=== PATIENT | male | born 1995 | race Caucasian/White ===

== ENCOUNTER 2016-11-12 21:43 | Emergency (ER) | payer BC, OTHER ==
[~2016-11-12] VITALS: Ht 172.7 cm; Wt 76.3 kg
[2016-11-12 21:50] VITALS: TEMP 36.8; Ht 172.7 cm; Wt 76.3 kg
[2016-11-12] MEDS ORDERED: GLUC10007 PO (22:07)
[2016-11-12] MEDS ORDERED: MULT-600 PO (22:07)
[2016-11-12] MEDS ORDERED: XYLOCAINE 1%/SOD BICARB 20 ML VIAL INFIL ONE (22:15)
--- NOTE | 2016-11-12 22:33 | DIAGNOSTIC IMAGING REPORT ---
CT HEAD WITHOUT CONTRAST (CT) CLINICAL HISTORY: Head pain status post trauma COMPARISON STUDY: No previous studies for comparison. TECHNIQUE: Axial CT of the brain is performed from the vertex to the skull base. IV contrast was not administered for this examination. CT DOSE: 537.48 mGy.cm FINDINGS: No intra or extra-axial mass lesions are visualized. There is no CT evidence of acute cortical infarction. There is no evidence of midline shift. There is no acute hemorrhage. No calvarial fractures are visualized. There is no evidence of pathologic ventricular dilatation. There is no evidence of acute sinusitis IMPRESSION: Normal noncontrast head CT. Electronically signed by: Niles Luis M.D. 11/12/2016 10:32 PM Dictated Date/Time: 11/12/2016 10:30 PM
--- NOTE | 2016-11-12 22:34 | DIAGNOSTIC IMAGING REPORT ---
RIGHT HAND MIN 3 VIEWS ROUTINE CLINICAL HISTORY: Right hand pain status post trauma. Lacerations. COMPARISON: None. DISCUSSION: No fractures or dislocations are visualized. There are no radiopaque foreign bodies. IMPRESSION: 1. No fractures or dislocations identified 2. No radiopaque foreign bodies are visualized. Electronically signed by: Niles Luis M.D. 11/12/2016 10:33 PM Dictated Date/Time: 11/12/2016 10:32 PM
[2016-11-12] MEDS ORDERED: CEPHALEXIN MONOHYDRATE 250 MG CAP PO ONE (23:00)
[2016-11-12 23:03] VITALS: BP 148/96; PULSE 70; O2SAT 99
[2016-11-12] MEDS ORDERED: CEPH500C PO (23:03)
--- NOTE | 2016-11-12 23:04 | EMERGENCY ROOM VISIT NOTE ---
History Report prepared by Emmanuel: Maryan Colunga Under the Supervision of: Dr. Prabhakar Ramos M.D. First contact with patient: 21:57 Chief Complaint: HEAD INJURY (MINOR) Stated Complaint: HIT IN HEAD, DIZZY, LACERATION TO RT HAND- History of Present Illness The patient is a 21 year old male who presents to the Emergency Room with complaints of a persistent headache which started earlier today. He was at work , putting up a projector screen when he fell backwards through the display window. The projector screen fell onto his head and his right hand was cut from the glass. He did not lose consciousness. He reports having some tunnel vision and almost falling asleep after the fall. He is still experiencing a headache in his left forehead area. He denies any neck pain. The patient is right handed. His tetanus is up to date. Source of History: patient Onset: earlier today Position: head Quality: ache Timing: other (persistent) Associated Symptoms: No LOC, No neck pain Note: Pt reports having tunnel vision after the injury. Review of Systems See HPI for pertinent positives & negatives. A total of 6 systems reviewed and were otherwise negative. Family History Pt reports no pertinent family history. Social History Smoking Status: Never Smoker Marital Status: single Occupation Status: employed Current/Historical Medications Scheduled Cephalexin Monohydrate (Keflex), 500 MG PO TID Glucosamine Sulfate (Glucosamine), 1,000 MG PO DAILY Multiple Vitamins W/ Minerals (Mens Multi Vitamin & Mine), 1 TAB PO DAILY Allergies Coded Allergies: No Known Allergies (Unverified Allergy, Unknown, 02/12/03) Physical Exam Vital Signs Date Time Temp Pulse Resp B/P Pulse Ox O2 Delivery O2 Flow Rate FiO2 11/12/16 23:03 70 18 148/96 99 Room Air 11/12/16 21:50 36.8 66 20 166/103 99 Room Air Physical Exam GENERAL: Patient is well appearing and in minimal distress. HEENT: Mucous membranes moist, no nasal congestion, no scleral icterus. Moderate hematoma over left pentecostalism of head tender to palpation. NECK: No stridor, no adenopathy, no meningismus, trachea is midline. LUNGS: No dyspnea. Clear to auscultation and equal bilaterally. No wheeze, no rhonchi. HEART: Regular rate and rhythm. No murmurs, rubs, gallops appreciated. EXTREMITIES: Normal motion all extremities, no cyanosis, no edema. On right hand , there is a 1 cm gash over the dorsal aspect of the thenar eminence and a 1.5 cm length flap in the mid thumb and a 0.5 cm laceration. NEUROLOGIC: Alert and oriented, no acute motor or sensory deficits, no focal weakness, cranial nerves grossly intact. GCS 15. SKIN: No rash, no jaundice, no diaphoresis. Medical Decision & Procedures ER Provider Diagnostic Interpretation: X ray results are stated below per my interpretation and the radiologist's interpretation. Radiology results and stated below per my review and radiologist interpretation: RIGHT HAND MIN 3 VIEWS ROUTINE CLINICAL HISTORY: Right hand pain status post trauma. Lacerations. COMPARISON: None. DISCUSSION: No fractures or dislocations are visualized. There are no radiopaque foreign bodies. IMPRESSION: 1. No fractures or dislocations identified 2. No radiopaque foreign bodies are visualized. Electronically signed by: Niles Luis M.D. 11/12/2016 10:33 PM Dictated Date/Time: 11/12/2016 10:[address] HEAD WITHOUT CONTRAST (CT) CLINICAL HISTORY: Head pain status post trauma COMPARISON STUDY: No previous studies for comparison. TECHNIQUE: Axial CT of the brain is performed from the vertex to the skull base. IV contrast was not administered for this examination. CT DOSE: 537.48 mGy.cm FINDINGS: No intra or extra-axial mass lesions are visualized. There is no CT evidence of acute cortical infarction. There is no evidence of midline shift. There is no acute hemorrhage. No calvarial fractures are visualized. There is no evidence of pathologic ventricular dilatation. There is no evidence of acute sinusitis IMPRESSION: Normal noncontrast head CT. Electronically signed by: Niles Luis M.D. 11/12/2016 10:32 PM Dictated Date/Time: 11/12/2016 10:30 PM Medications Administered Medications (Trade) Dose Ordered Sig/Christine Route Start Time Stop Time Status Last Admin Dose Admin Cephalexin Monohydrate (Keflex Cap) 500 mg NOW ONCE PO 11/12/16 23:00 11/12/16 23:01 DC 11/12/16 23:09 500 MG Procedure 4 sutures in the distal thumb, 1 suture in the mid thumb, 2 sutures in proximal thumb were placed. 5-0 sutures were used. 1 ml of lidocaine 1% without epi was used. ED Course 2157: The patient was evaluated in room C6. A complete history and physical exam was performed. 2214: Lidocaine HCl 20 ml INFIL. I sutured the patient's injuries according to the procedure note. 2254: I reevaluated the patient. I discussed results and discharge instructions : he verbalized understanding and agreement. The patient is ready for discharge. 2299: Keflex Cap 500 mg PO. Medical Decision Pleasant 21 yr old male with right hand lacerations and left head contusion post fall and head injury. Broken glass caused lacs to hand thus xray done revealing no evidence FB. Tetanus within last [address] head done given persistent headache and symptoms which was fortunately negative. GCS 15. Discussed possibility of concussion and need to keep well hydrated, rest well and avoid further head injury. Lacerations repaired to right thumb by me and placed in splint after to avoid tearing out stitches. Wound care discussed with patient. Stable and feels well at discharge. Impression Primary Impression: Closed head injury Additional Impression: Laceration of finger of right hand Scribe Attestation The scribe's documentation has been prepared under my direction and personally reviewed by me in its entirety. I confirm that the note above accurately reflects all work, treatment, procedures, and medical decision making performed by me. Departure Information Dispostion Home / Self-Care Prescriptions Cephalexin Monohydrate (Keflex) 500 Mg Cap 500 MG PO TID for 5 Days, #15 CAP Prov: Prabhakar Ramos M.D. 11/12/16 Referrals Jhony Barillas DO (PCP) Patient Instructions ED Laceration Ext Sutr Stap Tape, [facility] Additional Instructions Sutures should be removed in 7 days. You can return here or primary provider for removal. Problem Qualifiers Primary Impression: Closed head injury Encounter type: initial encounter Qualified Codes: S09.90XA - Unspecified injury of head, initial encounter Additional Impression: Laceration of finger of right hand Encounter type: initial encounter Qualified Codes: S61.219A - Laceration without foreign body of unspecified finger without damage to nail, initial encounter
== END 2016-11-12 23:13 | disposition home or self-care (01) ==
LOC: C.EDB 21:46 → C.EDC 23:13
DX: S09.90XA Unspecified injury of head, initial encounter (principal); S61.210A Laceration without foreign body of right index finger without damage to nail, initial encounter; W19.XXXA Unspecified fall, initial encounter; W20.8XXA Other cause of strike by thrown, projected or falling object, initial encounter; Y92.89 Other specified places as the place of occurrence of the external cause; Y99.0 Civilian activity done for income or pay

== ENCOUNTER 2016-11-19 18:55 | Emergency (ER) | payer OTHER, BC ==
[~2016-11-19] VITALS: Ht 172.7 cm; Wt 76.6 kg
[~2016-11-19 18:55] MED LIST: GLUC10007 PO; MULT-600 PO
[2016-11-19 19:02] VITALS: BP 158/89; PULSE 91; TEMP 37.3; O2SAT 96; Ht 172.7 cm; Wt 76.6 kg
--- NOTE | 2016-11-20 23:53 | EMERGENCY ROOM VISIT NOTE ---
ED Visit Note First contact with patient: 19:08 CHIEF COMPLAINT: Suture removal. HISTORY OF PRESENT ILLNESS: Mr. Ramos is a 21-year-old white male who ambulates into the ED requesting suture removal for a laceration he sustained 11days ago. He reports he feels like the wound is healing well. He has not identified any signs of infection and has had no pain in the thumb since his sutures. PHYSICAL EXAM: Vital Signs: Date Time Temp Pulse Resp B/P Pulse Ox O2 Delivery O2 Flow Rate FiO2 11/19/16 19:02 37.3 91 18 158/89 96 Room Air General: 21 year-old white male in no acute distress, nontoxic-appearing, afebrile and hemodynamically stable. Neurological: Awake and alert and oriented 3. Answering questions appropriately and following commands. No focal motor or sensory deficits. Right Hand: Clean dry and intact wounds on the thumb without signs of infection (erythema, swelling, tenderness, purulent drainage). ED COURSE: Patient is assessed as noted above. A total of 7 sutures were removed 3 different wounds without any difficulty and there was no separation of the wound edges. Patient was educated about brian's findings and instructed on his treatment plan; he verbalizes understanding and agreement with this plan. DISPOSITION: Patient discharged home in stable condition. CLINICAL IMPRESSION: Suture removal; Well healing laceration. PLAN: Patient was encouraged to continue current wound care instructions and watch for signs of infection. Patient was encouraged return the ED for any signs of infection or any new/ concerning symptoms.
== END 2016-11-19 19:24 | disposition home or self-care (01) ==
LOC: C.EDB 18:56 → C.EDD 19:24
DX: S61.011A Laceration without foreign body of right thumb without damage to nail, initial encounter (principal); X58.XXXA Exposure to other specified factors, initial encounter